=== PATIENT | male | born 1995 | race Caucasian/White ===

== ENCOUNTER 2024-12-16 00:03 | Emergency (ER) | payer OTHER, SELFPAY ==
--- NOTE | 2024-12-16 | RT.EKG_ITS ---
APPROVED REPORT Exam: Resting ECG Reason for Exam: Reaction Patient Location: E HR:80 bpm ECG Measurements Heart Rate 80 AXIS ME 169 P 76 QRSd 82 QRS 93 QT 352 T 49 QTc 407 Conclusion Sinus rhythm...normal P axis, V-rate 60- 99 ST elev, probable normal early repol pattern...ST elevation, age<57 I have reviewed and interpreted ECG and agree with software generated interpretation.
[2024-12-16 00:03] VITALS: BP 127/98; PULSE 79; RESP 24; TEMP 35.6; O2SAT 99
--- NOTE | 2024-12-16 00:08 | ED.GENADUL_ITS ---
Discharge Plan Disposition Patient Disposition: Home Condition: Good Discharge Details Clinical Impression: Paresthesias, Palpitations ED Provider: Reji Rich Meds and New Rx's Prescriptions: Held trazodone 50 mg tablet 25 mg PO QHS PRN Hold Instructions: Discuss with primary care or provider that wrote prescription Rx Instructions: take as needed for difficulty sleeping Discharge Instructions Instructions: Palpitations ED Additional Instructions: You were seen in the ED for numbness/tingling (paresthesias) and palpitations. Your exam, EKG, laboratory studies are all reassuring. While these are not listed as common side effects of trazodone they certainly could be so discussed with provider that wrote the prescription. Otherwise, follow-up with PCP as it may be worth obtaining outpatient cardiac monitoring once again especially if symptoms continue intermittently. Return to ED for chest pain, shortness of breath, syncope, neurologic change, other concerns. HPI General Mode of arrival: EMS . Date/Time Provider Initiated Documentation: 12/16/24 00:08 . Limitations to Documentation: no limitations . Information obtained by: patient and RN notes reviewed . HPI Narrative: Patient presents to ED by ambulance with onset of tingling in his hands. When he got up to get a drink of water tingling seem to spread up his arms into his chest, he became lightheaded, experienced palpitations but no chest pain. He did not faint. He had no dizziness, weakness, shortness of breath, nausea or vomiting. He has just started taking trazodone for sleep. He took his second dose this evening. Symptoms began after this. He is otherwise healthy with no significant past medical problems or medications. He is feeling much better here though still has some tingling in his fingers. Related Data Home Medications ?Medication ?Instructions ?Recorded ?Confirmed trazodone 50 mg tablet 25 mg PO QHS PRN 12/16/24 12/16/24 Allergies Allergy/AdvReac Type Severity Reaction Status Date / Time No Known Drug Allergies AdvReac Unknown Unknown Verified 12/16/24 00:08 Exam Narrative Exam Narrative: Const: WDWN male in NAD. VS per triage. HEENT: NC/AT. Normal facial exam. Neck: Supple. Trachea midline. Lungs: Normal respiratory effort. Lungs are clear. Cor: RRR without murmur. Good radial pulses. GI: Soft/ND/NT. Neuro: A+O x 3. Normal speech, mentation, gait. Cranial nerves II - XII grossly intact. No gross motor or sensory deficit. Ext: No C/C/E. Medical Decision Making Medical Records Medical records narrative: Patient presenting to ED with onset of tingling, near syncope, palpitations. He thinks it may possibly be related to the new trazodone which he took for the second time tonight. He has had a similar event when he was 20 that resulted in syncope. He reports an observation admission at that time as well as wearing alarm security or surveillance monitor outpatient with no findings. He did not have syncope tonight. He did not experience any type of chest pain or shortness of breath. His EKG is sinus rhythm with early repolarization, normal axis and intervals. Symptoms are not on the adverse effects less of trazodone but certainly could be. Will check thyroid studies and electrolytes. Does not seem consistent with PE, ACS, dissection. Will maintain on monitor while here to catch any potential arrhythmia. Patient's laboratory studies with a normal CBC. Electrolytes are also normal. TSH a little high but free T4 normal. No arrhythmias on the monitor. Will plan discharge home to follow-up with PCP. Consider discussing use of trazodone with provider that prescribed medication. Return precautions provided. Lab Data Lab results reviewed: Yes I reviewed the patient's lab results. Lab results narrative: see MDM ECG Data Attestation: I personally reviewed and interpreted this ECG (s) as follows: Prior ECG tracings: not available for review Interpretation: see MDM/EKG [facility] All Active Problems (Updated 12/16/24 @ 02:03 by Reji Rich MD) Palpitations (Acute) Paresthesias (Acute) Medical History (Updated 12/16/24 @ 02:03 by Reji Rich MD) No significant past medical history Social History Smoking/Tobacco Use Status: Never Smoking risk assessment performed?: Yes Alcohol Intake: current Alcohol Intake frequency: a few times a month Drug use: Never Substance use type: does not use Housing: house Do you feel safe at home: Yes Do you feel safe in your relationship?: Yes
[2024-12-16 00:13] VITALS: RESP 23
[2024-12-16 01:03] LABS: HCT 43.7 % (40.0-50.0); HGB 14.9 g/dL (13.5-17.5); MCH 30.7 pg (27.0-33.0); MCHC 34.1 % (32.0-36.0); MCV 90 fL (80-95); MPV 9.7 fL (8.0-11.0); Platelet Count 184 10^3/uL (130-400); RBC 4.85 10^6/uL (4.36-5.78); RDW-SD 39.2 fL; WBC 5.85 10^3/uL (4.4-10.8)
[2024-12-16 01:26] LABS: Anion Gap 6.3 mmol/L (3-11); BUN 19 mg/dL (7-18); CO2 29.7 mmol/L (21.0-32.0); Calcium 9.1 mg/dL (8.5-10.1); Chloride 104 mmol/L (98-107); Estimated GFR 105.79 (mL/min/1.73m2); Glucose 102 mg/dL (74-106); Magnesium 1.9 mg/dL (1.8-2.4); Potassium 3.8 mmol/L (3.5-5.1); Sodium 140 mmol/L (136-145); TSH (W/Ref FT4) 4.24 uIU/mL (0.36-3.74)
[2024-12-16 01:48] LABS: FREE T4 1.21 ng/dL (0.76-1.46)
[2024-12-16 02:14] VITALS: BP 144/78; PULSE 87; RESP 15; TEMP 36.5; O2SAT 100
== END 2024-12-16 02:14 | disposition home or self-care (01) ==
PROVIDERS: Emergency Provider Emergency Medicine; PCP Nurse Practitioner Family
DX: R00.2 Palpitations (principal); R20.2 Paresthesia of skin; R42 Dizziness and giddiness
CPT/HCPCS: 80048; 85027; 93005; 99284; 83735; 84439; 84443; 93010; 99283